=== PATIENT | female | born 1990 | race Two or more races ===

== ENCOUNTER 2024-11-05 23:43 | Emergency (ER) | payer MEDICAID, SELFPAY ==
[2024-11-05 23:43] VITALS: BMI 34.7
[2024-11-05 23:57] VITALS: BP 189/116; PULSE 100; RESP 18; TEMP 36.9; O2SAT 99
--- NOTE | 2024-11-05 23:57 | PD.EDDIZZY ---
ED Dizzyness RME/HPI General Chief Complaint: Dizziness Stated Complaint: DIZZY, BLOOD PRESSURE HIGH Time Seen by Provider: 11/05/24 23:52 Arrival date/time: 11/05/24 23:43 RME / HPI RME / HPI Narrative: This section includes all my notes and documentations, including HPI, PE, and ED course. Jose Leo MD HPI: 34yo female with a history of HTN presents to the ED for a chief complaint of dizziness. Patient states she was trying to fall asleep tonight, but states she couldn't due to not feeling well. Patient states she felt dizzy with headache, nauseated, and had diarrhea. She checked her blood pressure and it was noted to be 190/106, so she came in for evaluation. She denies any vomtiing, chest pain, shortness of breath or any other associated symptoms. Takes losartan every night. No speech or visual impairment. No loss of power in the arms or legs. No numbness or tingling. No other complaints reported. ROS: All negative except as documented in HPI. Physical Exam: General:? Alert and oriented.? No acute distress.?? Eyes:? Conjunctivae and lids clear.? EOMI.? PERRL. ENT:? No nasal congestion.? Neck:? Supple.? No carotid bruit.? No JVD.?? Heart:? RRR.? Lungs:? No respiratory distress.? Good air movement.? No rhonchi, wheezing, rales.?? Legs:? No clubbing, cyanosis, edema.? Skin:? Warm and dry.?? Neuro:? Alert and oriented X 3.? Cranial Nerves II-XII grossly intact.? No peripheral motor deficits. I reviewed all diagnostic test results. My interpretation of the EKG is sinus rhythm with no acute ST?T changes. My review of the head CT report is NAD. Blood tests and urine tests unremarkable. At this point, diagnoses include hypertensive urgency. Treatment here included oral clonidine 0.1 mg and metoprolol 100 mg. Significant improvement noted. Prescribed metoprolol and recommended outpatient follow-up. Based on my best medical judgment, made decision no further evaluation or treatment indicated at this time. Patient understands and agrees to the discharge instructions customized and printed, see below. Discharge Instructions from Dr. Leo printed for you: 1. Fortunately, there is no damage to your organs from your high BP. No stroke or heart attack or damage to your kidneys. 2. Take metoprolol 100 mg every morning on top of your losartan every night. You will live longer with lower BP and slower heart rate. 3. See your doctor on 11/10/24 for recheck and further care. 4. Seek immediate medical care with worsening or with any concerns. Jose Leo MD Related Data Home Medications ?Medication ?Instructions ?Recorded ?Confirmed prenat.vits,corey,pot-zual-wsxmu 1 tab PO QDAY 12/08/18 11/28/19 Previous Rx's ?Medication ?Instructions ?Recorded hydrocodone 5 mg-acetaminophen 325 1 tab PO Q6H PRN pain #30 tabs 12/12/18 mg tablet labetalol 100 mg tablet 100 mg PO BID #60 tabs 12/12/18 hydroxyzine HCl 50 mg tablet 50 mg PO Q4H PRN anxiety #20 tabs 02/18/24 ibuprofen 600 mg tablet 600 mg PO Q6H PRN pain #30 tabs 02/18/24 metoprolol succinate 100 mg 100 mg PO DAILY #30 tabs 11/06/24 tablet,extended release 24 hr Allergies Allergy/AdvReac Type Severity Reaction Status Date / Time No Known Allergies Allergy Verified 02/18/24 00:54 Review of Systems Review of Systems Systems Reviewed: All systems reviewed, normal except as documented Past Medical History Past Medical History NEUROLOGIC: Negative Neurological Disorders or Seizures CARDIAC: Positive Cardiac Disorders and Hypertension; Negative Congestive Heart Failure RESPIRATORY: Negative Chronic Obstructive Pulmonary Disease (COPD) GASTROINTESTINAL: Negative Gastrointestinal Disorders GENITOURINARY: Negative Genitourinary Disorders or Renal Disease REPRODUCTIVE: Positive Previous Pregnancies (x2) MUSCULOSKELETAL: Negative Musculoskeletal Disorders ENDOCRINE: Positive Diabetes Mellitus Type 2; Negative Endocrine Disorders or Diabetes Mellitus Type 1 HEMATOLOGIC: Negative Blood Disorders OTHER HISTORY: Positive Hospitalization (childbirth); Negative Autoimmune Disease, Blood Transfusions, Blood Transfusion Reaction or Anesthesia Reactions Family History FAMILY HISTORY: Positive Family Cardiac Disorders (mother-HTN); Negative Family Psychiatric Problems, Family Respiratory Disorders, Family Gastrointestinal Problems, Family Cancer, Family Surgery or Family Anesthesia Reaction Surgical History SURGICAL: Positive Section Social History SMOKING STATUS: Never smoker SECOND HAND EXPOSURE: No SUBSTANCE USE: does not use ED Exam Narrative Physical exam: As noted in HPI. Course Quality Measures none Orders Category Date Time Status EKG (ED ONLY) *Do not use* NOW Care 11/05/24 23:[address] head/brain wo con Stat Exams 11/05/24 23:59 Taken EKG (ED Only) Stat Exams 11/05/24 23:59 Ordered CBC Stat Lab 11/06/24 00:19 Completed CMP [Comprehensive Metabolic Panel] Stat Lab 11/06/24 00:19 Completed Free T4 (Free Thyroxine) Stat Lab 11/06/24 00:19 Completed HCG Qualitative,Urine Stat Lab 11/06/24 00:11 Completed Magnesium Stat Lab 11/06/24 00:19 Completed TSH [Thyroid Stimulating Hormone] Stat Lab 11/06/24 00:19 Completed Troponin I Stat Lab 11/06/24 00:19 Completed UA, C/S IF [Urinalysis, C/S if Indicated] Stat Lab 11/06/24 00:11 Completed Metoprolol Tartrate [Lopressor] Med 11/05/24 23:58 Discontinued 100 mg PO X1 ONE cloNIDine HCL [Catapres] Med 11/05/24 23:58 Discontinued 0.1 mg PO X1 ONE Vital Signs Vital signs: Vital Signs Temperature 98.4 F 11/05/24 23:57 Pulse Rate 100 11/05/24 23:57 Respiratory Rate 18 11/05/24 23:57 Blood Pressure 189/116 H 11/05/24 23:57 Pulse Oximetry (%) 99 11/05/24 23:57 Oxygen Delivery Method Room Air 11/05/24 23:57 Dizziness MDM Narrative MDM Narrative:: Scribe Attestation: 11/05/24 - Nolan, Rosemarie Ace am scribing for and in the presence of Dr. Leo. Patient data External records reviewed:: [facility] previous records (Per chart review, patient was seen here on 02/18/24 for anxiety.) Clinical information provided by:: patient Social determinants that could affect healthcare access:: none Patient has the following chronic illnesses:: HTN How is presenting disease/condition affected by chronic disease/condition?: caused by Evaluation data The following diagnostics were reviewed and interpreted by me:: lab results, radiology exam(s) and EKG tracing(s) Lab and/or radiology exams considered but not ordered:: none Interpretation Summary: Normal diagnostics Medications / Prescriptions Medications or Prescriptions considered but not ordered:: none Medication administrations:: Medication Administration History Discontinued Medications Clonidine (Clonidine Hcl 0.1 Mg Tablet) 0.1 mg PO X1 ONE Stop: 11/05/24 23:59 Last Admin: 11/06/24 00:14 Dose: 0.1 mg Documented By: YOMI Metoprolol Tartrate (Metoprolol Tartrate 25 Mg Tablet) 100 mg PO X1 ONE Stop: 11/05/24 23:59 Last Admin: 11/06/24 00:14 Dose: 100 mg Documented By: YOMI Clonidine, Metoprolol Consultations Consultation(s) initiated? (list below): No Diagnosis Dizziness Differential Diagnosis: adverse reaction to drug, benign paroxysmal positional vertigo, orthostatic hypotension, cerebrovascular accident, transient cerebral ischemia and other (Brain tumor, UT, anxiety, hypertensive urgency) Most likely diagnosis given after review of the tests above:: Hypertensive urgency Admission Indicated Admission indicated?: not indicated Explain why admission is indicated or not indicated:: With significant improvement, there was no indication for admission. Admission Request Was there a request for admission?: No Disposition Plan Disposition Plan: Discharge Discharge Attestation Discharge Attestation: The patient and all family members were given an opportunity to ask questions and understood the discharge instructions. Discharge instructions specifically effects, indications for sooner follow up or return to the emergency department, and the expected course of current diagnosis. Patient condition: Stable Discharge Plan Plan Patient Disposition: HOME (Self Care) Prescriptions/Referrals Prescriptions/Med Rec: New metoprolol succinate 100 mg tablet extended release 24 hr 100 mg PO DAILY Qty: 30 0RF No Action hydrocodone-acetaminophen 5-325 mg tablet 1 tab PO Q6H MDD 30 PRN (Reason: pain) Qty: 30 0RF labetalol 100 mg tablet 100 mg PO BID Qty: 60 0RF prenat.vits,corey,asw-vdrg-rcvzi Tablet 1 tab PO QDAY hydroxyzine HCl 50 mg tablet 50 mg PO Q4H PRN (Reason: anxiety) Qty: 20 0RF ibuprofen 600 mg tablet 600 mg PO Q6H PRN (Reason: pain) Qty: 30 0RF Problem List Clinical Impression: Hypertensive urgency Patient/Caregiver Discharge Instructions Discharge Activity: activity as tolerated Education Materials: ED Hypertension, Established Additional Instructions: Discharge Instructions from Dr. Leo printed for you: 1. Fortunately, there is no damage to your organs from your high BP. No stroke or heart attack or damage to your kidneys. 2. Take metoprolol 100 mg every morning on top of your losartan every night. You will live longer with lower BP and slower heart rate. 3. See your doctor on 11/10/24 for recheck and further care. 4. Seek immediate medical care with worsening or with any concerns. Print Language: Occitan Stand Alone Forms: Janeth Award Info., Patient Portal Info Letter
--- NOTE | 2024-11-05 23:59 | XR_ITS ---
Examination: CT brain head without contrast. 2-D sagittal coronal reconstructions Date and time of exam:November 06, 2024 0042 hrs. Indications: High blood pressure with headache dizziness today CTDI: vol (mGy):46.3 DLP: (mGycm):879 Technique: Multiple CT axial sections of the brain have been obtained, 5 mm slice thickness. Contrast has not been administered. 2-D sagittal, coronal reconstructions have been obtained Low dose protocols were performed. One or more of the following dose reduction techniques were used; automated exposure control, adjustment of the mA and/or KV according to patient size, use of iterative reconstruction technique. Findings: No significant ventricular enlargement. Intra-axial or extra-axial hemorrhage density is not seen. No mass effect or midline shift Basal cisterns are not remarkable. Fourth ventricle is midline. Cranial vault intact. Impression: Negative for acute hemorrhage, mass effect or midline shift
[2024-11-06 00:14] VITALS: BP 176/112; PULSE 105
[2024-11-06] MEDS: cloNIDine HCL 0.1 MG TABLET PO (00:14)
[2024-11-06] MEDS: METOPROLOL TARTRATE 25 MG TABLET 100 MG PO (00:14)
[2024-11-06 00:36] LABS: Collection Type, Urine Clean Catch
[2024-11-06 00:48] LABS: Bilirubin,Urine Negative (Negative); Blood,Urine Negative (Negative); Clarity,Urine Clear (Clear/Hazy); Color,Urine Colorless (Lt Yel-Yel); Culture Indicated,Urine Not Indicated; Glucose, Urine 1+ (Negative); Ketones,Urine Negative (Negative); Leukocyte Esterase,Urine Negative (Negative); Nitrite,Urine Negative (Negative); PH,Urine 6.5 (5.0-7.0); Protein,Urine Negative (Neg - Trace); RBC,Urine 1 /hpf (0-3); Specific Gravity,Urine 1.005 (1.001-1.035); Squamous Epithelial Cell,Urine 1 /hpf (0-5); Urobilinogen,Urine Negative mg/dL (0.0-1.0); WBC,Urine 1 /hpf (0-5)
[2024-11-06 00:53] LABS: Basophils % (Auto) 0 % (0-2.5); Eosinophils # (Auto) 0.2 Thou/mm3 (0.0-0.5); Eosinophils % (Auto) 1 % (0-10); Hematocrit 41.8 % (36.0-46.0); Hemoglobin 14.5 g/dL (12.0-16.0); Immature Granulocytes % (Auto) 0 % (0-0); Immature Granulocytes Auto 0.03 Thou/mm3 (0.00-0.00); Lymphocytes # (Auto) 3.1 Thou/mm3 (1.0-4.8); Lymphocytes % (Auto) 29 % (10-50); Mean Corpuscular HGB Conc 34.7 g/dl (31.0-37.0); Mean Corpuscular Hemoglobin 28.8 pg (25.0-35.0); Mean Corpuscular Volume 83 fL (80-100); Monocytes # (Auto) 0.7 Thou/mm3 (0.0-0.8); Monocytes % (Auto) 7 % (0-12); Neutrophils # (Auto) 6.8 Thou/mm3 (1.8-7.7); Neutrophils % (Auto) 63 % (37-80); Nucleated Red Blood Cell % 0 /100 WBC (0); Platelet Count 282 Thou/mm3 (140-440); RDW Standard Deviation 37.3 fL (36.4-46.3); Red Blood Count 5.04 Miln/mm3 (4.00-5.20); White Blood Count 10.8 Thou/mm3 (3.6-11.0)
[2024-11-06 00:55] LABS: HCG Qualitative,Urine Negative
[2024-11-06 01:10] LABS: Alanine Aminotransferase 16 U/L (10-49); Albumin, Serum 4.7 gm/dL (3.5-5.0); Albumin/Globulin Ratio 1.6 (1.2-2.2); Alkaline Phosphatase 117 U/L (46-116); Anion Gap 8 (7-16); Aspartate Amino Transferase 12 U/L (0-34); BUN/Creatinine Ratio 14 Ratio (12-20); Bilirubin,Total 0.9 mg/dL (0.3-1.2); Blood Urea Nitrogen 10 mg/dL (9-23); Calcium 9.5 mg/dL (8.3-10.6); Calcium (Corrected) 9.5 mg/dL (8.5-10.1); Carbon Dioxide 26.2 mMol/L (20.0-31.0); Chloride 105 mMol/L (98-107); Creatinine (Component) 0.7 mg/dL (0.6-1.3); Estimated Creatinine Clearance 116.5 mL/min (>60); Free T4 (Free Thyroxine) 2.02 ng/dL (0.89-1.76); Globulin 2.9 gm/dL (2.3-3.5); Glucose 245 mg/dL (74-106); Magnesium 1.8 mg/dL (1.6-2.6); Osmolality,Calculated 284 (275-295); Potassium 3.5 mMol/L (3.4-5.1); Sodium 139 mMol/L (136-145); Total Protein 7.6 gm/dL (5.7-8.2); Troponin I < 0.002 ng/mL (0.0-0.045); eGFR > 60 See Note
--- NOTE | 2024-11-06 01:24 | PRELIM_ITS ---
CT scan of the head without intravenous contrast (axial sections with sagittal and coronal reformats). November 06, 2024 0042 hours Clinical History: Headache and high BP. Comparison: No prior study is available for comparison. Findings: No evidence of intracranial hemorrhage, mass effect or midline shift. The ventricles and CSF spaces are unremarkable. The calvarium is unremarkable. The mastoid air cells and the visualized paranasal sinuses are clear. Impression: No evidence of intracranial hemorrhage, mass effect or midline shift. Report Electronically Signed By: Praveen Duncan 11/06/2024 1:23:42 AM [EST]
[2024-11-06 01:45] VITALS: BP 118/76; PULSE 77; RESP 19; TEMP 36.9; O2SAT 99
== END 2024-11-06 01:45 | disposition home or self-care (01) ==
LOC: SERX 11-06 06:01
PROVIDERS: Emergency Provider Emergency Medicine; PCP Internal Medicine
DX: I16.0 Hypertensive urgency (principal); I10 Essential (primary) hypertension; R51.9 Headache, unspecified
CPT/HCPCS: 36415; 70450; 80053; 81001; 81025; 83735; 84439; 84443; 84484; 85025; 93005; 99284; A9270

== ENCOUNTER 2024-12-14 01:41 | Emergency (ER) | payer MEDICAID, SELFPAY ==
[2024-12-14 01:42] VITALS: BMI 32.5
--- NOTE | 2024-12-14 01:46 | EKG_ITS ---
[facility] Test Date: 2024-12-14 Pat Name: YOVANNY SUE Department: Room: - Gender: Female [employer] Watchstander: : 1990 Requested By: ED Temporary Provider Order Number: [id number] Reading MD: ED Temporary Provider Measurements Intervals [place] Rate: 98 P: 32 DE: 166 QRS: 9 QRSD: 90 T: 0 QT: 367 QTc: 470 Interpretive Statements SINUS RHYTHM Compared to ECG 11/06/2024 00:15:16 Sinus tachycardia no longer present /store/S0/[id number].pdf
[2024-12-14 01:56] VITALS: BP 161/97; BP 188/101; PULSE 108; RESP 16; TEMP 36.9; O2SAT 100
[2024-12-14 03:05] VITALS: BP 143/88; PULSE 91; RESP 18; TEMP 37.2; O2SAT 98
--- NOTE | 2024-12-14 04:08 | PD.EDRME ---
Rapid Medical Screening Exam RME Arrival date/time: 12/14/24 01:41 Chief Complaint: General Adult/Misc Complain Vital signs: Vital Signs Temperature 98.5 F 12/14/24 01:56 Pulse Rate 108 H 12/14/24 01:56 Respiratory Rate 16 12/14/24 01:56 Blood Pressure 188/101 H 12/14/24 01:56 Pulse Oximetry (%) 100 12/14/24 01:56 Oxygen Delivery Method Room Air 12/14/24 01:56 Vital signs reviewed by provider: Yes RME Narrative: 34-year-old female presents to the ED with a complaint of elevated blood pressure as well as left anterior chest pain that radiates to the left arm began tonight. She states she was seen here last month for elevated blood pressure and was given a new medication. She indicates this new medication helped with her blood pressure and her blood pressure came down to the 120s over 80s. She ran out of this medication 3 days ago. She was seen by her primary care physician since her last visit here in the ED but the medication was not represcribed. She was told by the pharmacy that the provider that prescribed it from the ED would have to renew this medication. I have greeted and performed a focused initial assessment of this patient. A comprehensive ED assessment and evaluation of the patient, analysis of all test results, and completion of the medical decision making process will be conducted by additional ED providers.
--- NOTE | 2024-12-14 04:14 | XR_ITS ---
Examination: PA lateral chest 2 views TECHNIQUE: Upright PA and lateral chest 2 views Date and time: December 14, 2024 0440 hours Comparison February 18, 2024. INDICATIONS: Chest pain today. FINDINGS: Normal heart size Lungs are clear. The osseous structures are intact. IMPRESSION: No active disease
[2024-12-14 04:26] VITALS: BP 130/87; PULSE 88
[2024-12-14] MEDS: METOPROLOL SUCCINATE XL 25 MG TABCR 50 MG PO (04:26)
[2024-12-14 04:43] LABS: Basophils % (Auto) 0 % (0-2.5); Eosinophils # (Auto) 0.1 Thou/mm3 (0.0-0.5); Eosinophils % (Auto) 1 % (0-10); Hematocrit 38.9 % (36.0-46.0); Hemoglobin 13.9 g/dL (12.0-16.0); Immature Granulocytes % (Auto) 0 % (0-0); Immature Granulocytes Auto 0.03 Thou/mm3 (0.00-0.00); Lymphocytes # (Auto) 2.8 Thou/mm3 (1.0-4.8); Lymphocytes % (Auto) 28 % (10-50); Mean Corpuscular HGB Conc 35.7 g/dl (31.0-37.0); Mean Corpuscular Hemoglobin 29.6 pg (25.0-35.0); Mean Corpuscular Volume 83 fL (80-100); Monocytes # (Auto) 0.6 Thou/mm3 (0.0-0.8); Monocytes % (Auto) 6 % (0-12); Neutrophils # (Auto) 6.5 Thou/mm3 (1.8-7.7); Neutrophils % (Auto) 65 % (37-80); Nucleated Red Blood Cell % 0 /100 WBC (0); Platelet Count 255 Thou/mm3 (140-440); RDW Standard Deviation 39.4 fL (36.4-46.3); White Blood Count 10.1 Thou/mm3 (3.6-11.0)
[2024-12-14 04:58] LABS: Partial Thromboplastin Time 25.6 Seconds (22.0-36.0); Prothrombin Time 10.9 Seconds (9.0-12.2)
[2024-12-14 05:06] LABS: Alanine Aminotransferase 17 U/L (10-49); Albumin, Serum 4.7 gm/dL (3.5-5.0); Albumin/Globulin Ratio 1.6 (1.2-2.2); Alkaline Phosphatase 112 U/L (46-116); Anion Gap 10 (7-16); Aspartate Amino Transferase 11 U/L (0-34); B-Type Natriuretic Peptide < 20 pg/mL (0-100); BUN/Creatinine Ratio 15 Ratio (12-20); Bilirubin,Total 0.9 mg/dL (0.3-1.2); Blood Urea Nitrogen 12 mg/dL (9-23); Calcium 8.9 mg/dL (8.3-10.6); Calcium (Corrected) 8.9 mg/dL (8.5-10.1); Carbon Dioxide 26.2 mMol/L (20.0-31.0); Chloride 104 mMol/L (98-107); Creatinine (Component) 0.8 mg/dL (0.6-1.3); Estimated Creatinine Clearance 98.5 mL/min (>60); Globulin 2.9 gm/dL (2.3-3.5); Glucose 253 mg/dL (74-106); LDH (Lactate Dehydrogenase) 133 U/L (120-246); Magnesium 1.8 mg/dL (1.6-2.6); Osmolality,Calculated 288 (275-295); Potassium 3.6 mMol/L (3.4-5.1); Sodium 140 mMol/L (136-145); Total Protein 7.6 gm/dL (5.7-8.2); eGFR > 60 See Note
[2024-12-14 05:12] LABS: Collection Type, Urine Clean Catch
[2024-12-14 05:19] LABS: Troponin I < 0.002 ng/mL (0.0-0.045)
[2024-12-14 05:23] LABS: Bilirubin,Urine Negative (Negative); Blood,Urine Negative (Negative); Clarity,Urine Clear (Clear/Hazy); Color,Urine Lt-Yellow (Lt Yel-Yel); Glucose, Urine 4+ (Negative); Hyaline Casts,Urine < 1 /hpf (0-1); Ketones,Urine Trace (Negative); Leukocyte Esterase,Urine Positive (Negative); Nitrite,Urine Negative (Negative); Protein,Urine Negative (Neg - Trace); RBC,Urine 6 /hpf (0-3); Specific Gravity,Urine 1.022 (1.001-1.035); Squamous Epithelial Cell,Urine 9 /hpf (0-5); Urobilinogen,Urine Negative mg/dL (0.0-1.0); WBC,Urine 12 /hpf (0-5)
[2024-12-14 05:28] LABS: Amphetamine/Methamp Scrn,U Negative (Negative); Barbiturate Screen,Urine Negative (Negative); Benzodiazepines Screen,Urine Negative (Negative); Benzoylecgonine Screen, Ur Negative (Negative); Fentanyl Screen,Urine Negative (Negative); Opiate Screen,Urine Negative (Negative); THC Screen,Urine Negative (Negative)
[2024-12-14 07:25] VITALS: BP 133/84; PULSE 77; RESP 16; TEMP 36.9; O2SAT 99
[2024-12-14 08:23] LABS: Troponin I < 0.002 ng/mL (0.0-0.045)
--- NOTE | 2024-12-14 08:26 | EDNOTE_ITS ---
ED General RME/HPI General Chief complaint: General Adult/Misc Complain Stated complaint: BLOOD PRESSURE HIGH, CHEST PAIN Time Seen by Provider: 12/14/24 07:41 Arrival date/time: 12/14/24 01:41 34-year-old female presents to the ED with a complaint of elevated blood pressure as well as left anterior chest pain that radiates to the left arm began tonight. She states she was seen here last month for elevated blood pressure and was given a new medication. She indicates this new medication helped with her blood pressure and her blood pressure came down to the 120s over 80s. She ran out of this medication 3 days ago. She was seen by her primary care physician since her last visit here in the ED but the medication was not represcribed. She was told by the pharmacy that the provider that prescribed it from the ED would have to renew this medication. Limitations: no limitations RME / HPI RME / HPI narrative: 34-year-old female presents to the ED with a complaint of elevated blood pressure as well as left anterior chest pain that radiates to the left arm began tonight. She states she was seen here last month for elevated blood pressure and was given a new medication. She indicates this new medication helped with her blood pressure and her blood pressure came down to the 120s over 80s. She ran out of this medication 3 days ago. She was seen by her primary care physician since her last visit here in the ED but the medication was not represcribed. She was told by the pharmacy that the provider that prescribed it from the ED would have to renew this medication. I have greeted and performed a focused initial assessment of this patient. A comprehensive ED assessment and evaluation of the patient, analysis of all test results, and completion of the medical decision making process will be conducted by additional ED providers. Related Data Home Medications ?Medication ?Instructions ?Recorded ?Confirmed amlodipine 5 mg tablet 5 mg PO DAILY 12/14/2412/14 atorvastatin 20 mg tablet mg 12/14/24 fenofibrate nanocrystallized 145 mg PO 12/14/24 mg tablet flash glucose sensor (FreeStyle 12/14/24 12/14/24 Archana 2 Sensor kit) metformin 1,000 mg tablet mg 12/14/24 Previous Rx's ?Medication ?Instructions ?Recorded labetalol 100 mg tablet 100 mg PO BID #60 tabs 05/23 /19 metoprolol succinate 100 mg 100 mg PO DAILY #30 tabs 0 11/06/24 tablet,extended release 24 hr amlodipine 5 mg tablet 5 mg PO QDAY #30 tabs metoprolol succinate 100 mg 100 mg PO QDAY #30 ea 11/21 12/14 capsule sprinkle, ext. release 24 hr Allergies Allergy/AdvReac Type Severity Reaction Status Date / Time No Known Allergies Allergy Verified 02/18/24 00:54 Review of Systems Review of Systems Systems Reviewed: All systems reviewed, normal except as documented Constitutional Constitutional: Reports system reviewed and no additional complaints, except as documented, Denies fever(s) and Denies headache(s) Eyes Eyes: Reports system reviewed and no additional complaints, except as documented and Denies blurry vision ENT Ears, Nose, Mouth, and Throat: Reports system reviewed and no additional complaints, except as documented, Denies headache(s), Denies nasal congestion and Denies nasal discharge Cardiovascular Cardiovascular: Reports system reviewed and no additional complaints, except as documented, Reports chest pain and Denies dyspnea Respiratory Respiratory: Reports system reviewed and no additional complaints, except as documented, Denies chest congestion, Denies cough and Denies dyspnea Gastrointestinal Gastrointestinal: Reports system reviewed and no additional complaints, except as documented and Denies abdominal pain Integumentary/Breasts Skin/Breast: Reports system reviewed and no additional complaints, except as documented and Denies rash Neurologic Neurologic: Reports system reviewed and no additional complaints, except as documented, Reports as per HPI and Denies headache(s) Past Medical History Past Medical History NEUROLOGIC: Negative Neurological Disorders or Seizures CARDIAC: Positive Cardiac Disorders and Hypertension; Negative Congestive Heart Failure RESPIRATORY: Negative Chronic Obstructive Pulmonary Disease (COPD) GASTROINTESTINAL: Negative Gastrointestinal Disorders GENITOURINARY: Negative Genitourinary Disorders or Renal Disease REPRODUCTIVE: Positive Previous Pregnancies MUSCULOSKELETAL: Negative Musculoskeletal Disorders ENDOCRINE: Positive Diabetes Mellitus Type 2; Negative Endocrine Disorders or Diabetes Mellitus Type 1 HEMATOLOGIC: Negative Blood Disorders OTHER HISTORY: Positive Hospitalization; Negative Autoimmune Disease, Blood Transfusions, Blood Transfusion Reaction or Anesthesia Reactions Family History FAMILY HISTORY: Positive Family Cardiac Disorders; Negative Family Psychiatric Problems, Family Respiratory Disorders, Family Gastrointestinal Problems, Family Cancer, Family Surgery or Family Anesthesia Reaction Surgical History SURGICAL: Positive Section Social History SMOKING STATUS: Never smoker SECOND HAND EXPOSURE: No SUBSTANCE USE: does not use ED Exam General Limitations: Present no limitations General appearance: Present alert and in no apparent distress Head Head exam: Present atraumatic, normocephalic and normal inspection Eye Eye exam: Present normal appearance, PERRL and EOMI; Absent conjunctival injection ENT ENT exam: Present normal exam, normal oropharynx and mucous membranes moist Neck Neck exam: Present normal inspection, full ROM and trachea midline Chest Chest inspection: Present normal inspection and symmetric chest wall rise Respiratory Respiratory exam: Present normal lung sounds bilaterally; Absent respiratory di stress Cardiovascular Cardiovascular exam: Present regular rate, normal rhythm and normal heart sounds; Absent bradycardia, tachycardia, irregular rhythm, systolic murmur, diastolic murmur or JVD Abdominal Exam Abdominal exam: Present soft and normal bowel sounds; Absent distention, tenderness, guarding, rebound or rigidity Extremities Exam Extremities exam: Present normal inspection and full ROM Back Exam Back exam: Present normal inspection and full ROM Neurological Exam Neurological exam: Present alert, oriented X3 and CN II-XII intact Psychiatric Psychiatric exam: Present normal affect and normal mood Skin Skin exam: Present warm, dry, intact and normal color Course Quality Measures none Orders Category Date Time Status EKG (ED ONLY) *Do not use* NOW Care 12/14/24 01:47 Completed EKG (ED Only) Stat Exams 12/14/24 01:46 Draft XR chest 2V Stat Exams 12/14/24 04:14 Completed B-Type Natriuretic Peptide Stat Lab 12/14/24 04:35 Completed CBC Stat Lab 12/14/24 04:35 Completed Comprehensive Metabolic Panel Stat Lab 12/14/24 04:35 Completed Drug Screen,Urine Stat Lab 12/14/24 04:50 Completed LDH (Lactate Dehydrogenase) Stat Lab 12/14/24 04:35 Completed Magnesium Stat Lab 12/14/24 04:35 Completed Partial Thromboplastin Time Stat Lab 12/14/24 04:35 Completed Prothrombin Time with INR Stat Lab 12/14/24 04:35 Completed Troponin I Stat Lab 12/14/24 04:35 Completed Troponin I Stat Lab 12/14/24 07:55 Completed Urinalysis Stat Lab 12/14/24 04:50 Completed Metoprolol Succinate Xl [Toprol Xl] Med 12/14/24 04:14 Discontinued 50 mg PO X1 ONE Vital Signs Vital signs: Vital Signs Temperature 98.5 F 12/14/24 01:56 Pulse Rate 108 H 12/14/24 01:56 Respiratory Rate 16 12/14/24 01:56 Blood Pressure 188/101 H 12/14/24 01:56 Pulse Oximetry (%) 100 12/14/24 01:56 Oxygen Delivery Method Room Air 12/14/24 01:56 o2 sat 100% r/a wnl Procedures -ED EKG Interpretation #1: Date of EK12/14/24 Time of EK:59 Rate: 98 Interpretation: Interpreted by me EKG Impression: Normal sinus rhythm, No acute ST-T changes, No ectopy, No ischemic changes, Normal QRS, Normal intervals and Normal axis Discharge Plan Plan Patient Disposition: HOME (Self Care) Discharge Disposition comment: Stable Prescriptions/Referrals Prescriptions/Med Rec: New metoprolol succinate 100 mg capsule,sprinkle,ER 24hr 100 mg PO QDAY Qty: 30 0RF amlodipine 5 mg tablet 5 mg PO QDAY Qty: 30 0RF No Action labetalol 100 mg tablet 100 mg PO BID Qty: 60 0RF metoprolol succinate 100 mg tablet extended release 24 hr 100 mg PO DAILY Qty: 30 0RF amlodipine 5 mg tablet 5 mg PO DAILY Patient Comments: TAKE ONE TABLET BY MOUTH EVERY DAY HIGH BLOOD PRESSURE atorvastatin 20 mg tablet Patient Comments: TAKE ONE TABLET BY MOUTH EVERY DAY FOR CHOLESTEROL metformin 1,000 mg tablet Patient Comments: TAKE ONE TABLET BY MOUTH TWICE DAILY FOR DIABETES fenofibrate nanocrystallized 145 mg tablet PO Patient Comments: TAKE ONE TABLET BY MOUTH AT BEDTIME FOR CHOLESTEROL (DME) FreeStyle Archana 2 Sensor Kit Patient Comments: CHECK BLOOD SUGAR CHANGE every TWO WEEKS Referrals: Teodoro Lehman FNP-C [Primary Care Provider] - In 1 week Problem List Clinical Impression: Chest pain, Hypertension Patient/Caregiver Discharge Instructions Education Materials: ED Chest Pain, Noncardiac Additional Instructions: Please follow up with your primary care doctor in the next 24-48hrs for any worsening symptoms return here immediately Print Language: Namibian Stand Alone Forms: Janeth Award Info., Work/School Release, Patient Portal Info Letter PA/KYE Supervising Physician MARIANA/KYE Supervising Physician: Dr. medrano [facility] Narrative MDM hospital course: 34-year-old female presents to the ED with a complaint of elevated blood pressure as well as left anterior chest pain that radiates to the left arm began tonight. She states she was seen here last month for elevated blood pressure and was given a new medication. She indicates this new medication helped with her blood pressure and her blood pressure came down to the 120s over 80s. She ran out of this medication 3 days ago. She was seen by her primary care physician since her last visit here in the ED but the medication was not represcribed. She was told by the pharmacy that the provider that prescribed it from the ED would have to renew this medication. On exam patient well-appearing does not appear ill or toxic in no acute stress Lab work from EKG and imaging obtained no acute emergent findings noted troponin negative x 2 Patient discharged home in no distress to follow-up with primary care doctor in the next 24 to 48 hours and for any worsening symptoms to return to the ER immediately Clinical Information Provided by none Medical Records Reviewed [facility] Meds/Rx Considered, not Ordered Describe details: Given Labs/Rad/Tests considered, not Ordered Describe details: Obtain Chronic Illness/Social Conditions which may negatively complicate care or outcome(s)-explain: None or not applicable EKG EKG Interpretation narrative: EKG obtained Lab Interpretation Labs: interpreted by me Imaging Imaging interpretation: interpreted by me Medication Administration(s) Medication Administration History Discontinued Medications Metoprolol Succinate (Metoprolol Succinate Xl 25 Mg Tabcr) 50 mg PO X1 ONE Stop: 12/14/24 04:15 Last Admin: 12/14/24 04:26 Dose: 50 mg Documented By: Given Diagnosis Differential diagnosis: Anxiety, hypertension, asymptomatic hypertension, chest pain Dispositon Disposition: Discharge Home
== END 2024-12-14 08:46 | disposition home or self-care (01) ==
PROVIDERS: Nurse Practitioner Primary Care; Physician Assistant; Emergency Provider Family Medicine
DX: R07.89 Other chest pain (principal); I10 Essential (primary) hypertension
CPT/HCPCS: 36415; 71046; 80053; 80307; 81001; 83615; 83735; 83880; 84484; 85025; 85610; 85730; 93005; 99283; A9270

== ENCOUNTER → 2024-12-25 | Outpatient (CLI) | payer MEDICAID, SELFPAY ==
--- NOTE | 2024-12-25 11:30 | XR_ITS ---
Examination: Thyroid sonography complete TECHNIQUE: Grayscale sonographic images thyroid Date and time: December 25, 2024 1132 hours INDICATIONS: Elevated T4 laboratory examination 2 weeks ago FINDINGS: Right thyroid 5.1 cm Left thyroid 4.9 cm No thyroid nodules IMPRESSION: Mild thyromegaly
== END | disposition home or self-care (01) ==
PROVIDERS: PCP Internal Medicine
DX: E01.0 Iodine-deficiency related diffuse (endemic) goiter (principal)
CPT/HCPCS: 76536

== ENCOUNTER → 2025-04-07 | Outpatient (CLI) | payer MEDICAID, SELFPAY ==
--- NOTE | 2025-04-07 09:35 | XR_ITS ---
Examination: PA lateral chest 2 views TECHNIQUE: Upright PA lateral chest 2 views Date and time: April 07, 2025 0935 hours, comparison December 14, 2024 INDICATIONS: Chest pain beginning 3 months ago. FINDINGS: Normal heart size Lungs are clear. The osseous structures are intact IMPRESSION: No active disease.
== END | disposition home or self-care (01) ==
LOC: CDIM 08:51
DX: R07.89 Other chest pain (principal)
CPT/HCPCS: 71046

== ENCOUNTER → 2025-06-05 | Outpatient (CLI) | payer MEDICAID, SELFPAY ==
--- NOTE | 2025-06-05 07:15 | XR_ITS ---
Examination: Breast ultrasound, unilateral, left Date and time of exam: June 05, 2025, 0753 hours INDICATIONS: Left breast pain 5 months Technique: Real-time couch scale ultrasonographic imaging performed left breast including all 4 quadrants as well as nipple retroareolar and axillary region. Findings: No cystic or solid mass IMPRESSION: BI-RADS Category 1 negative study
== END | disposition home or self-care (01) ==
DX: N64.4 Mastodynia (principal)
CPT/HCPCS: 76641